=== PATIENT | female | born 1965 | race Caucasian/White ===

== ENCOUNTER 2018-01-22 16:40 | Emergency (ER) | payer OTHER ==
[2018-01-22] MEDS: LORAZEPAM 2 MG INJ IM (19:54)
[2018-01-22] MEDS: LORAZEPAM 2 MG INJ IV ×2 (20:00)
== END 2018-01-23 01:13 | disposition home or self-care (01) ==
LOC: E/R 01-23 01:13
DX: F10.929 Alcohol use, unspecified with intoxication, unspecified (principal); S09.90XA Unspecified injury of head, initial encounter; S00.31XA Abrasion of nose, initial encounter; R40.2122 Coma scale, eyes open, to pain, at arrival to emergency department; R40.2352 Coma scale, best motor response, localizes pain, at arrival to emergency department; X58.XXXA Exposure to other specified factors, initial encounter; Y92.9 Unspecified place or not applicable
CPT/HCPCS: 70450; 80306; 84703; 96372; 96374; 99285-25